=== PATIENT | female | born 1935 | race Asian ===

== ENCOUNTER 2022-01-24 20:02 | Inpatient (IN) | payer OTHER ==
[~2022-01-24] VITALS: Ht 152.4 cm; Wt 82.2 kg
[~2022-01-24 20:02] MED LIST: AMLO5TAB66 PO; METF-444 PO
[2022-01-24] MEDS ORDERED: 0.9% SODIUM CHLORIDE 10 ML SYRINGE IVP PRN (20:15)
[2022-01-24] MEDS ORDERED: ACETAMINOPHEN 1000 MG/ISO-OSM 100 ML IV ONE (20:15)
[2022-01-24] MEDS ORDERED: SODIUM CHLORIDE 0.9% 1,000 ML IV ONE ×2 (20:15→21:15)
[2022-01-24] MEDS ORDERED: VANCOMYCIN 1GM/WATER(PEG/NADA) 200 ML IV ONE (20:15)
[2022-01-24] MEDS ORDERED: PIPERACILLIN/TAZO 3.375 GM/D5W 50 ML IV ONE (20:15)
[2022-01-24] MEDS ORDERED: ADENOSINE 3 MG/ML 2 ML VIAL IVP ONE (20:30)
[2022-01-24 20:31] LABS: ABG BASE EXCESS -6.4 mmol/L (-2.0-3.0); ABG CARBOXYHEMOGLOBIN 0.3 % (0.0-1.5); ABG HCO3 20.5 mmol/L (22.0-26.0); ABG METHEMOGLOBIN 0.4 % (0.0-1.5); ABG OXYGEN CONTENT 21.5 mL/dL (15.0-23.0); ABG OXYGEN SATURATION 97.9 % (95.0-98.0); ABG OXYHEMOGLOBIN 97.2 % (94.0-100.0); ABG PCO2 30 mmHg (35-45); ABG PH 7.409 (7.35-7.450); ABG TOTAL HEMOGLOBIN 15.7 G/dL (12.0-18.0); PO2, ARTERIAL BG 101.9 mmHg (71.0-79.0); SITE, BLOOD GAS LFT RADIAL; SOURCE, BLOOD GAS ARTERIAL; TEMPERATURE, FAHRENHEIT, BG 98.6 FAHREN (96.0-98.6)
[2022-01-24 20:32] LABS: O2 DEVICE,BLOOD GAS CANNULA (ROOM AIR)
[2022-01-24 20:55] LABS: COVID AG,FIA SOURCE NASOPHARYNGEAL
[2022-01-24 20:57] LABS: EOSINOPHILS % (AUTO) 0.7 % (1.0-6.0); HEMOGLOBIN 15.5 g/dL (12.0-16.0); LYMPHOCYTES # (AUTO) 1.6 K/uL (1.0-4.8); LYMPHOCYTES % (AUTO) 26.1 % (22.0-44.0); MEAN CORPUSCULAR HEMOGLOBIN 30.5 pg (26.0-34.0); MEAN CORPUSCULAR HGB CONC 33.8 G/dL (31.0-37.0); MEAN CORPUSCULAR VOLUME 90 fL (80-100); MONOCYTES % (AUTO) 0.6 % (2.0-9.0); NEUTROPHILS # (AUTO) 4.3 K/uL (1.8-7.7); NEUTROPHILS % (AUTO) 71.6 % (40.0-70.0); PLATELET COUNT (AUTO) 309 K/uL (150-450); RED BLOOD CELL COUNT(AUTO) 5.09 MIL/uL (4.00-5.20); RED CELL DISTRIBUTION WIDTH 13.2 % (11.5-14.5)
[2022-01-24 21:11] LABS: ANION GAP 22 mmol/L (8-16); CALCIUM, TOTAL 8.8 mg/dL (8.8-10.5); CARBON DIOXIDE 18 mmol/L (22-29); CHLORIDE 99 mmol/L (98-107); CREATININE 1.63 mg/dL (0.60-1.30); GLUCOSE,RANDOM 217 mg/dL (70-110); POTASSIUM 3.7 mmol/L (3.5-5.1); SODIUM SERUM 139 mmol/L (136-145); UREA NITROGEN, BLOOD 23 mg/dL (7-18)
[2022-01-24 21:13] LABS: GLOMERULAR FILTR. RATE CALC 30 mL/min (>60)
[2022-01-24 21:17] LABS: ALANINE AMINOTRANSFERASE 39 U/L (12-78); ALBUMIN 3.6 g/dL (3.4-5.0); ALKALINE PHOSPHATASE 135 U/L (46-116); ASPARTATE AMINOTRANSFERASE 50 U/L (15-37); BILIRUBIN,TOTAL 0.6 mg/dL (0.1-1.0); CREATINE KINASE, TOTAL ONLY 42 U/L (26-192); PHOSPHORUS 3.8 mg/dL (2.5-4.9); TOTAL PROTEIN, SERUM 7.7 g/dL (6.4-8.2)
[2022-01-24 21:18] LABS: INFLUENZA TYPE A NEGATIVE FOR TYPE A (NEGATIVE); INFLUENZA TYPE B NEGATIVE FOR TYPE B (NEGATIVE)
[2022-01-24 21:26] LABS: B-TYPE NATRIURETIC PEPTIDE 23 pg/mL (0-100)
[2022-01-24] MEDS ORDERED: ACETAMINOPHEN 325 MG TABLET PO PRN (21:30)
[2022-01-24] MEDS ORDERED: DEXTROSE 50%-WATER 25 GM/50 ML SYRINGE IVP PRN (21:30)
[2022-01-24] MEDS ORDERED: RINGERS SOLUTION,LACTATED 1,650 ML IV ONE (21:30)
[2022-01-24] MEDS ORDERED: ONDANSETRON HCL 4 MG/2 ML VIAL IVP PRN (21:30)
[2022-01-24] MEDS ORDERED: MAGNESIUM SULFATE 2 GM/WATER 50 ML IV ONE (21:30)
[2022-01-24] MEDS ORDERED: AMLO-258 PO (21:33)
[2022-01-24] MEDS ORDERED: ALLO-97 PO (21:33)
[2022-01-24 21:37] LABS: PROTHROMBIN TIME 10.9 SEC (9.4-11.6)
[2022-01-24] MEDS ORDERED: MAGNESIUM OXIDE 400 MG TABLET PO PRN (21:45)
[2022-01-24] MEDS ORDERED: MAGNESIUM SULFATE 4 GM/WATER 100 ML IV PRN (21:45)
[2022-01-24] MEDS ORDERED: MAGNESIUM SULFATE 2 GM/WATER 50 ML IV PRN (21:45)
[2022-01-24 21:52] LABS: LACTIC ACID 9.4 mmol/L (0.4-2.0)
[2022-01-24] MEDS: INSULIN GLARGINE,HUM.REC.ANLOG 100 UNITS/ML SQ SCH (21:53)
[2022-01-24 21:55] LABS: APPEARANCE,URINE HAZY (CLEAR); BILIRUBIN,URINE NEGATIVE (NEGATIVE); GLUCOSE, URINE (UA) NEGATIVE (NEGATIVE); KETONES,URINE NEGATIVE (NEGATIVE); LEUKOCYTE ESTERASE ,URINE LARGE (NEGATIVE); NITRATE,URINE POSITIVE (NEGATIVE); OCCULT BLOOD,URINE MODERATE (NEGATIVE); PROTEIN,URINE 100-200,SEE CONFIRM mg/dL (NEGATIVE); SPECIFIC GRAVITIY, URINE 1.014 (1.003-1.030); UROBILINOGEN,URINE <=1.0 mg/dL (<=1.0)
[2022-01-24 21:57] LABS: CREATININE,URINE RANDOM 73.6 mg/dL (30.0-125.0)
[2022-01-24] MEDS ORDERED: *CLINICAL-AZTREONAM DOSING CLINICAL ONE (22:00)
[2022-01-24] MEDS ORDERED: SODIUM BICARBONATE [ADULT] 8.4% 50 MEQ/50 ML SYRINGE IVP ONE (22:00)
[2022-01-24 22:17] LABS: SULFOSALICYLIC ACID,URINE 3+ (Negative)
[2022-01-24 22:18] LABS: BACTERIA,URINE Moderate /HPF (None Seen)
[2022-01-24 22:49] LABS: D-DIMER 13.5 mg/L FEU (0.00-0.50)
[2022-01-24] MEDS: HEPARIN SODIUM,PORCINE 5,000 UNITS/ML VIAL SQ SCH (23:05)
[2022-01-24 23:46] LABS: GLUCOSE,POINT OF CARE 145 MG/DL (70-110)
[2022-01-24 23:57] VITALS: BP 106/72
[2022-01-25] VITALS (7 sets, daily range): BP systolic 79–126; BP diastolic 43–56
[2022-01-25] MEDS ORDERED: RINGERS SOLUTION,LACTATED 500 ML IV ONE (00:15)
[2022-01-25] MEDS: RINGERS SOLUTION,LACTATED 1,000 ML IV SCH ×3 (00:43→20:00)
[2022-01-25] MEDS ORDERED: MORPHINE SULFATE 2 MG/ML SYRINGE IM ONE (01:30)
[2022-01-25] MEDS ORDERED: LEVALBUTEROL HCL 0.63 MG/3 ML NEB SOLUTION NEB ONE (01:30)
[2022-01-25] MEDS ORDERED: AZTREONAM 1 GM in DEXTROSE 5%-WATER 50 ML IV ONE (03:00)
[2022-01-25] MEDS ORDERED: PIPERACILLIN/TAZO 3.375 GM/D5W 50 ML IV SCH (03:00)
[2022-01-25 06:34] LABS: HEMATOCRIT 37.5 % (36-46); HEMOGLOBIN 12.7 g/dL (12.0-16.0); MEAN CORPUSCULAR HEMOGLOBIN 30.5 pg (26.0-34.0); MEAN CORPUSCULAR VOLUME 90 fL (80-100); PLATELET COUNT (AUTO) 195 K/uL (150-450); RED BLOOD CELL COUNT(AUTO) 4.18 MIL/uL (4.00-5.20)
[2022-01-25 07:00] LABS: CALCIUM, TOTAL 7.4 mg/dL (8.8-10.5); CREATININE 1.91 mg/dL (0.60-1.30); MAGNESIUM 1.6 mg/dL (1.80-2.40); POTASSIUM 3.1 mmol/L (3.5-5.1)
[2022-01-25] MEDS ORDERED: SODIUM CHLORIDE 0.9% 250 ML IV ONE ×3 (07:48→19:42)
[2022-01-25] MEDS: HEPARIN SODIUM,PORCINE 5,000 UNITS/ML VIAL SQ SCH ×2 (07:50→15:56)
[2022-01-25] MEDS ORDERED: NOREPINEPHRINE 8 MG/D5%-WATER 250 ML IV ONE (08:09)
[2022-01-25] MEDS: NOREPINEPHRINE 8 MG/D5%-WATER 250 ML IV PRN ×3 (08:30→20:35)
[2022-01-25] MEDS: AZTREONAM 1 GM in DEXTROSE 5%-WATER 50 ML IV SCH ×2 (08:39→17:19)
[2022-01-25 08:48] LABS: BAND NEUTROPHILS % (MANUAL) 32 % (0-5); LYMPHOCYTES % (MANUAL) 7 % (22-44); MONOCYTES % (MANUAL) 2 % (2-9); SEGMENTED NEUTROPHILS % 59 % (40-70)
[2022-01-25] MEDS ORDERED: AZTREONAM 0.5 GM in DEXTROSE 5%-WATER 50 ML IV SCH (09:00)
[2022-01-25] MEDS: PIPERACILLIN SODIUM/TAZOBACTAM 2.25 GM in DEXTROSE 5%-WATER 50 ML IV SCH ×3 (09:16→22:00)
[2022-01-25] MEDS: POTASSIUM CHL 10 MEQ/WATER 50 ML IV SCH ×6 (09:45→14:13)
[2022-01-25] MEDS ORDERED: SODIUM CHLORIDE 0.9% 500 ML IV ONE (10:42)
[2022-01-25] MEDS ORDERED: VANCOMYCIN HCL 500 MG in DEXTROSE 5%-WATER 100 ML IV ONE (12:00)
[2022-01-25 12:36] LABS: GLUCOSE,POINT OF CARE 156 MG/DL (70-110)
[2022-01-25] MEDS: INSULIN LISPRO 100 UNITS/ML SQ PRN ×2 (12:43→17:47)
[2022-01-25 18:31] LABS: GLUCOSE,POINT OF CARE 204 MG/DL (70-110)
[2022-01-25] MEDS: INSULIN GLARGINE,HUM.REC.ANLOG 100 UNITS/ML SQ SCH (20:41)
[2022-01-26] VITALS: BP 131/45
[2022-01-26] MEDS: AZTREONAM 1 GM in DEXTROSE 5%-WATER 50 ML IV SCH ×2 (00:37→09:48)
[2022-01-26 04:00] VITALS: BP 145/49
[2022-01-26] MEDS: PIPERACILLIN SODIUM/TAZOBACTAM 2.25 GM in DEXTROSE 5%-WATER 50 ML IV SCH ×2 (05:21→10:51)
[2022-01-26 05:52] LABS: GLUCOSE,POINT OF CARE 107 MG/DL (70-110)
[2022-01-26 05:52] LABS: GLUCOSE,POINT OF CARE 194 MG/DL (70-110)
[2022-01-26 06:02] LABS: CALCIUM, TOTAL 7.4 mg/dL (8.8-10.5); CREATININE 1.82 mg/dL (0.60-1.30); MAGNESIUM 2.1 mg/dL (1.80-2.40); POTASSIUM 3.8 mmol/L (3.5-5.1)
[2022-01-26 06:07] LABS: HEMATOCRIT 34.4 % (36-46); HEMOGLOBIN 11.4 g/dL (12.0-16.0); MEAN CORPUSCULAR HGB CONC 33.2 G/dL (31.0-37.0); MEAN CORPUSCULAR VOLUME 90 fL (80-100); PLATELET COUNT (AUTO) 144 K/uL (150-450); RED BLOOD CELL COUNT(AUTO) 3.81 MIL/uL (4.00-5.20)
[2022-01-26] MEDS: RINGERS SOLUTION,LACTATED 1,000 ML IV SCH (06:31)
[2022-01-26 06:57] LABS: BAND NEUTROPHILS % (MANUAL) 30 % (0-5); LYMPHOCYTES % (MANUAL) 7 % (22-44); MONOCYTES % (MANUAL) 3 % (2-9); SEGMENTED NEUTROPHILS % 60 % (40-70)
[2022-01-26 08:00] VITALS: BP 92/58
[2022-01-26] MEDS ORDERED: VANCOMYCIN HCL 500 MG in DEXTROSE 5%-WATER 100 ML IV SCH (08:00)
[2022-01-26] MEDS: HEPARIN SODIUM,PORCINE 5,000 UNITS/ML VIAL SQ SCH ×2 (08:48)
[2022-01-26 11:51] LABS: GLUCOSE,POINT OF CARE 87 MG/DL (70-110)
[2022-01-26 12:00] VITALS: BP 118/51
== END 2022-01-26 14:30 | disposition short-term general hospital (02) | DRG 871 ==
LOC: EMS 20:05 → ICU 22:32
PROVIDERS: ADMIT Internal Medicine; ATTEND Internal Medicine
PROC: 02HV33Z Insertion of Infusion Device into Superior Vena Cava, Percutaneous Approach (ICD-10-PCS; principal; 2022-01-25)
PROC: B548ZZA Ultrasonography of Superior Vena Cava, Guidance (ICD-10-PCS; 2022-01-25)
DX: A41.50 Gram-negative sepsis, unspecified (principal); G92.8 Other toxic encephalopathy; R65.21 Severe sepsis with septic shock; J96.01 Acute respiratory failure with hypoxia; E87.2 Acidosis; N39.0 Urinary tract infection, site not specified; N17.9 Acute kidney failure, unspecified; E11.22 Type 2 diabetes mellitus with diabetic chronic kidney disease; E78.5 Hyperlipidemia, unspecified; I12.9 Hypertensive chronic kidney disease with stage 1 through stage 4 chronic kidney disease, or unspecified chronic kidney disease; M81.0 Age-related osteoporosis without current pathological fracture; Z20.822 Contact with and (suspected) exposure to COVID-19; E11.65 Type 2 diabetes mellitus with hyperglycemia; R80.9 Proteinuria, unspecified; M10.9 Gout, unspecified; R79.89 Other specified abnormal findings of blood chemistry; N18.9 Chronic kidney disease, unspecified; Z79.4 Long term (current) use of insulin; Z85.3 Personal history of malignant neoplasm of breast
CPT/HCPCS: 36245; 36569; 36600; 70450; 71045; 76770; 76937; 80048; 80053; 81001; 81002; 82550; 82570; 82805; 82962; 83605; 83735; 83880; 84100; 84145; 84300; 84484; 85025; 85379; 85610; 87040; 87077; 87081; 87086; 87205; 87804; 93005; 94640; 99291; G0378; J0131; J1644; J1815; J2270; J2405; J2543; J3370; J3475; J3480; J3490; J7040; J7050; J7060; J7120; Q9967; 36415-L1; 36415-TC; Z7610